=== PATIENT | female | born 1990 | race Caucasian/White ===

== ENCOUNTER 2018-08-13 12:07 | Emergency (ER) | payer MEDICAID ==
[2018-08-13 12:08] VITALS: BMI 24.5
[2018-08-13 12:29] VITALS: RESP 16; O2SAT 100
[2018-08-13 14:01] LABS: BASO # 0.1 K/uL (0.0-0.2); BASO % 1.2 % (0.0-2.0); EOS # 0.2 K/uL (0.0-0.7); HEMOGLOBIN 12.1 g/dL (12.0-16.0); LYMPH # 1.9 K/uL (1.0-4.3); LYMPH % 22.8 % (20.0-40.0); MEAN CORPUSCULAR HEMOGLOBIN 28.9 pg (27.0-31.0); MEAN CORPUSCULAR HGB CONC 33.2 g/dL (33.0-37.0); MEAN PLATELET VOLUME 8.5 fl (7.2-11.7); MONO # 0.5 K/uL (0.0-0.8); NEUT # 5.7 K/uL (1.8-7.0); NRBC % 0.1 % (0.0-0.0); RBC 4.17 Mil/uL (3.80-5.20); RED CELL DISTRIBUTION WIDTH 12.9 % (11.5-14.5); WHITE BLOOD COUNT 8.3 K/uL (4.8-10.8)
[2018-08-13 14:12] LABS: ALB/GLOB RATIO 1.2 (1.0-2.1); ALBUMIN 3.9 g/dL (3.5-5.0); ALT/SGPT 13 U/L (9-52); AST/SGOT 26 U/L (14-36); BLOOD UREA NITROGEN 11 mg/dl (7-17); CALCIUM 8.8 mg/dL (8.4-10.2); GFR NON-AFRICAN AMERICAN > 60
--- NOTE | 2018-08-13 15:09 | ED PDOC ---
HPI: Female Pain Time Seen by Provider: 08/13/18 12:43 Chief Complaint (Nursing): Female Genitourinary History Per: Patient Additional Complaint(s): Pt. states since February 2018 she's had b/l pelvic pain. Reports pain began after her elective . States she was seen twice in 2 different ED's and was discharged from the ED with an Rx for ibuprofen. States she never f/u with an OBGYN. Further reports last month she found out that she was and has a scheduled visit for the first time next month. Also reports having mild dysuria and thick white vaginal discharge for 1 month. Denies fever, vaginal bleeding, vaginal spotting, frequency, urgency, N/V/D, fever. Abnormal Vaginal Bleeding: No Last Menstral Period: 05/25/2018 Past Medical History Reviewed: Historical Data, Nursing Documentation, Vital Signs Vital Signs: Last Vital Signs Temp 98.7 F 08/13/18 12:25 Pulse 109 H 08/13/18 12:25 Resp 16 08/13/18 12:25 BP 105/70 08/13/18 12:25 Pulse Ox 100 08/13/18 12:25 Primary Care Provider: FAMILY PROVIDER,NO - Surgical History Surgical History: No Surg Hx - Family History Family History: States: No Known Family Hx, Unknown Family Hx - Immunization History Hx Tetanus Toxoid Vaccination: No Hx Influenza Vaccination: No Hx Pneumococcal Vaccination: No - Home Medications Home Medications: Ambulatory Orders Medication Instructions Recorded Ibuprofen [Motrin] 1 tab PO TID PRN #30 tab 03/19/18 Miconazole/Cleanser 17 On Wipe 1 each VG DAILY #1 kit 08/13/18 [Monistat 3 Combo Pack] - Allergies Allergies/Adverse Reactions: Allergies Allergy/AdvReac Type Severity Reaction Status Date / Time No Known Allergies Allergy Verified 08/13/18 12:25 Review of Systems ROS Statement: Except As Marked, All Systems Reviewed And Found Negative Genitourinary Female: Positive for: Dysuria, Vaginal Discharge, Pelvic Pain Physical Exam - Physical Exam Appears: Positive for: Well, Non-toxic, No Acute Distress Skin: Positive for: Normal Color, Warm. Negative for: Rash Eye Exam: Positive for: Normal appearance Cardiovascular/Chest: Positive for: Regular Rate, Rhythm Respiratory: Positive for: Normal Breath Sounds. Negative for: Respiratory Distress Gastrointestinal/Abdominal: Positive for: Normal Exam, Soft. 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 Negative for: Active Bleeding, Blood, Cervicitis, Ulcers Back: Negative for: L CVA Tenderness, R CVA Tenderness Extremity: Positive for: Normal ROM Neurological/Psych: Positive for: Awake, Alert, Oriented (x3) - Laboratory Results Result Diagrams: 08/13/18 13:45 08/13/18 13:45 Lab Results: Total Bilirubin 0.5 mg/dl (0.2-1.3) 08/13/18 13:45 AST 26 U/L (14-36) 08/13/18 13:45 ALT 13 U/L (9-52) 08/13/18 13:45 Alkaline Phosphatase 46 U/L (38-126) 08/13/18 13:45 Total Protein 7.0 G/DL (6.3-8.2) 08/13/18 13:45 Albumin 3.9 g/dL (3.5-5.0) 08/13/18 13:45 Globulin 3.1 gm/dL (2.2-3.9) 08/13/18 13:45 Albumin/Globulin Ratio 1.2 (1.0-2.1) 08/13/18 13:45 - ECG O2 Sat by Pulse Oximetry: 100 - Progress ED Course And Treament: Labs, TVUS ordered. TVUS: SLIUP 14 weeks 5 days as per radiology report. Pt. informed of results and advised to f/u with OBGYN as previously scheduled without fail. Agrees with plan and care. Disposition - Clinical Impression Clinical Impression: Vaginitis, - Patient ED Disposition Is Patient to be Admitted: No - Disposition Referrals: [facility] [Outside] Disposition: Routine/Home Disposition Time: 16:50 Condition: STABLE Additional Instructions: FOLLOW UP WITH YOUR OBGYN FOR FURTHER EVALUATION RETURN TO ED IMMEDIATELY IF SYMPTOMS WORSEN Prescriptions: Miconazole/Cleanser 17 On Wipe [Monistat 3 Combo Pack] 1 each VG DAILY #1 kit Instructions: Vaginitis Forms: [employer] (Khmer)
--- NOTE | 2018-08-13 16:50 | US ---
Date of service: 08/13/2018 PROCEDURE: OB Pelvic Ultrasound HISTORY: b/l pelvic pain LMP: 05/25/2018 COMPARISON: None available. FINDINGS: UTERUS: Single intrauterine gestation is present. BPD 2.7 cm corresponding to 14 weeks 5 days. Abdominal circumference 8.4 cm corresponding to 14 weeks 5 days. Head circumference 10.0 cm corresponding to 14 weeks 5 days. Femur length 1.5 cm corresponding to 14 weeks 3 days. Heart rate: 156 beats per minute age (Ultrasound estimated): 14 weeks 4 days +/-1 week 0 days with an estimated date of delivery of 02/07/2019. Leia-gestational hemorrhage: None. Uterus measures at least 14 cm in length with it at a 7.8 cm AP dimension on sagittal images and a 7.8 cm AP dimension on transverse images. Cm. Normal in size and appearance. CERVIX: Measures 4.5 cm and closed. No cervical abnormality seen. RIGHT OVARY: Measures 4.0 x 2.5 x 2.2 cm. No mass lesion. Normal flow. Small corpus luteal cyst measuring 8 mm in maximum dimension. LEFT OVARY: Measures 2.7 x 2.6 x 2.1 cm. No solid mass. Normal flow. FREE FLUID: None. OTHER FINDINGS: Anterior placenta no previous seen. Hallux presentation. IMPRESSION: Single intrauterine gestation with normal cardiac activity whose whose gestational age by ultrasound parameters corresponds to a 14 week 4 day +/-1 week 0 day gestation. anatomy is limited. Clinical dates are 11 weeks 3 days by LMP. Cephalic presentation. Anterior placenta and no previa.
[2018-08-13 17:32] LABS: SQUAMOUS EPITHIAL 11 /hpf (0-5); URINE BACTERIA OCC (<OCC); URINE BILIRUBIN NEGATIVE (NEGATIVE); URINE BLOOD SMALL (NEGATIVE); URINE CLARITY SLIGHTY-CLOUDY (Clear); URINE COLOR YELLOW (YELLOW); URINE GLUCOSE (UA) NEG (NEGATIVE); URINE LEUKOCYTE ESTERASE NEG Leu/uL (Negative); URINE PROTEIN NEGATIVE (NEGATIVE); URINE UROBILINOGEN 0.2-1.0 mg/dL (0.2-1.0)
[2018-08-13 19:05] VITALS: BP 110/70; PULSE 99; TEMP 98.5
== END 2018-08-13 19:07 | disposition home or self-care (01) ==
LOC: H.ER 12:07
DX: O23.592 Infection of other part of genital tract in pregnancy, second trimester (principal); Z3A.14 14 weeks gestation of pregnancy